=== PATIENT | male | born 1950 | race Caucasian/White ===

== ENCOUNTER 2017-05-08 20:38 | Emergency (ER) | payer BC ==
[2017-05-08 20:54] VITALS: BP 148/78
[2017-05-08] MEDS ORDERED: Oxymetazoline 0.05% Nasal Spray 15 ML Bottle NASBOTH ONE (20:57)
--- NOTE | 2017-05-08 21:19 | EDM.PDOC ---
ED HPI GENERAL MEDICAL PROBLEM - General Chief Complaint: ENT Problem Stated Complaint: EXCESSIVE NOSEBLEED Time Seen by Provider: 05/08/17 21:10 Source of Information: Reports: Patient History Limitations: Reports: No Limitations - History of Present Illness INITIAL COMMENTS - FREE TEXT/NARRATIVE: Patient is a 66-year-old male who presents ED complaining of epistaxis that started approximately 2 hours ago. States while at work the nosebleed started on its own accord with no recent trauma. He is on Coumadin chronically. Patient denies recent upper respiratory infection, n/v, sob, or any additional complaints. Treatments [employer]: Reports: Cold Therapy, Other (see below) Other Treatments [employer]: pressure - Related Data Allergies Allergy/AdvReac Type Severity Reaction Status Date / Time morphine Allergy Cannot Verified 05/08/17 20:54 Remember nabumetone Allergy Nausea Verified 05/08/17 20:54 Home Meds: Home Meds Aspirin [Low Dose Aspirin EC] 81 mg PO DAILY 02/27/14 [History] Digoxin [Lanoxin] 0.25 mg PO DAILY 02/27/14 [History] Furosemide [Lasix] 20 mg PO DAILY 02/27/14 [History] Losartan Potassium [Cozaar] 100 mg PO DAILY 02/27/14 [History] Potassium Chloride [K-Tab ER] 20 meq PO DAILY 02/27/14 [History] Sertraline [Zoloft] 50 mg PO QPM 02/27/14 [History] atorvaSTATin [Lipitor] 40 mg PO BEDTIME 04/01/14 [History] Carvedilol 25 mg PO BID 07/10/16 [History] Acetaminophen [Non-Aspirin] 325 mg PO Q4H PRN 05/08/17 [History] Hydrochlorothiazide [Hydrochlorothiazide] 1 tab PO DAILY 05/08/17 [History] Past Medical History HEENT History: Reports: Impaired Vision Cardiovascular History: Reports: Aneurysm, Bypass, High Cholesterol, Hypertension Other Cardiovascular History: open quad bypass 1 yrs ago, Attempted Cardioversion after by-pass. Other Respiratory History: H/O Hypoxia Other Gastrointestinal History: Evelated LFT's Other Genitourinary History: Elevated BUN [mild] Musculoskeletal History: Reports: Arthritis Other Musculoskeletal History: BUSTED RIGHT SHOULDER Psychiatric History: Reports: Depression Other Endocrine/Metabolic History: Hx. elevated Blood Glucose - Past Surgical History Cardiovascular Surgical History: Reports: Aneurysm, Coronary Artery Bypass Musculoskeletal Surgical History: Reports: Shoulder Surgery Social & Family History - Family History Family Medical History: Noncontributory - Tobacco Use Smoking Status *Q: Never Smoker Second Hand Smoke Exposure: No - Caffeine Use Caffeine Use: Reports: None - Alcohol Use Days Per Week of Alcohol Use: 0 - Recreational Drug Use Recreational Drug Use: No Drug Use in Last 12 Months: No ED ROS ENT - Review of Systems Review Of Systems: ROS reveals no pertinent complaints other than HPI. ED EXAM, ENT - Physical Exam Exam: See Below Exam Limited By: No Limitations General Appearance: Alert, WD/WN, No Apparent Distress Ears: Hearing Grossly Normal Nose: Active Bleeding (both nares when clip removed. ), Dried Blood Mouth/Throat: Normal Inspection, Other (bleeding to the posterior pharynx noted. ) Neck: Normal Inspection, Supple Respiratory/Chest: No Respiratory Distress, No Accessory Muscle Use Cardiovascular: Normal Peripheral Pulses, Regular Rate, Rhythm Extremities: Normal Inspection Neurological: Alert, Oriented, CN II-XII Intact, Normal Cognition, No Motor/ Sensory Deficits Psychiatric: Normal Affect, Normal Mood Skin: Warm, Dry, Intact, Normal Color Course - Vital Signs Last Recorded V/S: Last Vital Signs Temp 98 F 05/08/17 20:51 Pulse 70 05/08/17 20:51 Resp 18 05/08/17 20:51 BP 148/78 H 05/08/17 20:51 Pulse Ox 96 05/08/17 20:51 - Orders/Labs/Meds Labs: Laboratory Tests 05/08/17 05/08/17 Range/Units 21:15 21:15 WBC 9.28 H (4.23-9.07) K/mm3 RBC 4.33 L (4.63-6.08) M/mm3 Hgb 12.6 L (13.7-17.5) gm/L Hct 37.7 L (40.1-51.0) % MCV 87.1 (79.0-92.2) fl MCH 29.1 (25.7-32.2) pg MCHC 33.4 (32.2-35.5) g/dl RDW Std Deviation 43.9 (35.1-43.9) fL Plt Count 152 L (163-337) K/mm3 MPV 10.8 (9.4-12.3) fl Neut % (Auto) 68.1 H (34.0-67.9) % Lymph % (Auto) 19.7 L (21.8-53.1) % [place] % (Auto) 9.4 (5.3-12.2) % Eos % (Auto) 2.3 (0.8-7.0) Baso % (Auto) 0.5 (0.1-1.2) % Neut # (Auto) 6.32 H (1.78-5.38) K/mm3 Lymph # (Auto) 1.83 (1.32-3.57) K/mm3 [place] # (Auto) 0.87 H (0.30-0.82) K/mm3 Eos # (Auto) 0.21 (0.04-0.54) K/mm3 Baso # (Auto) 0.05 (0.01-0.08) K/mm3 PT 28.7 H (8.0-13.0) SECONDS INR 2.48 Meds: Medications Discontinued Medications Generic Name Dose Route Start Last Admin Trade Name Hoq PRN Reason Stop Dose Admin Cocaine HCl 4 ml 05/08/17 21:14 05/08/17 21:27 Cocaine Hcl TOP 05/08/17 21:15 4 ml ONETIME ONE Administration Oxymetazoline HCl 1 ml 05/08/17 20:57 05/08/17 21:27 Afrin Original 0.05% Nasal [place] NASBOTH 05/08/17 20:58 2 spray ONETIME ONE Administration - Re-Assessments/Exams Free Text/Narrative Re-Assessment/Exam: Nose clip present. When removed bleeding persists. Had patient blow his nose to remove any clots that precipitated worsening bleeding from the right nare. [place] 2 sprays to each nare with clip placed. Ordered liquid cocaine. Will place in both nares and clip to evaluate if bleeding subsides. In the meantime PT/INR and CBC ordered. Hemoglobin 12.6. INR is 2.48. INR is therapeutic for paroxysmal A. fib. 05/08/17 22:11 Removed packing from the nares. Bleeding has subsided. Heavy coat of bacitracin applied to each nare. 05/08/17 22:24 Patient went to stand up and started having bleeding from the right nare. On examination appears to be anterior in nature. Place an anterior Rhino Rocket with no complications. Per patient bleeding has subsided. 05/08/17 22:36 reassessment, bleeding has subsided. With evaluation of the posterior pharynx there is no blood present. Will per the patient for discharge. Departure - Departure Time of Disposition: 22:12 Disposition: Home, Self-Care 01 Condition: Good Clinical Impression: Epistaxis, Acute anterior epistaxis - Discharge Information Referrals: Gregorio Mccarthy MD [Primary Care Provider] - Forms: ED Department Discharge Additional Instructions: As discussed INR is therapeutic at 2.48. Bleeding from the right and there resolved with placement of a Rhino Rocket. Please leave in place until the morning of 05/10/2017. Return to the ED to have this removed. May take Tylenol for any discomfort. If bleeding starts again please return back to the ED for further evaluation.
== END 2017-05-08 22:52 | disposition home or self-care (01) ==
LOC: JD.ED 20:38
DX: R04.0 Epistaxis (principal); E78.00 Pure hypercholesterolemia, unspecified; I10 Essential (primary) hypertension; Z88.5 Allergy status to narcotic agent; Z79.82 Long term (current) use of aspirin; Z79.899 Other long term (current) drug therapy
CPT/HCPCS: 30903; 36415; 85025; 85610; 99283; A9270; 99282-25

== ENCOUNTER 2017-05-10 09:20 | Emergency (ER) | payer BC ==
[2017-05-10 09:37] VITALS: BP 89/52
--- NOTE | 2017-05-10 09:39 | EDM.PDOC ---
ED HPI GENERAL MEDICAL PROBLEM - General Chief Complaint: ENT Problem Stated Complaint: NOSEBLEED RECHECK Time Seen by Provider: 05/10/17 09:38 - History of Present Illness INITIAL COMMENTS - FREE TEXT/NARRATIVE: 66-year-old male returns emergency room for nasal packing removal. Patient had a anterior Rhino Rocket placed in his right naris 2 days ago after having what sounds like a fairly substantial bleed. The patient is on chronic Coumadin therapy. The patient has been doing well with the packing in place. The packing was removed at check in and he developed some mild bleeding. He has not had any dizziness his blood pressure is low however they keep his blood pressure low. - Related Data Allergies Allergy/AdvReac Type Severity Reaction Status Date / Time morphine Allergy Cannot Verified 05/10/17 09:29 Remember nabumetone Allergy Nausea Verified 05/10/17 09:29 Home Meds: Home Meds Aspirin [Low Dose Aspirin EC] 81 mg PO DAILY 02/27/14 [History] Digoxin [Lanoxin] 0.25 mg PO DAILY 02/27/14 [History] Furosemide [Lasix] 20 mg PO DAILY 02/27/14 [History] Losartan Potassium [Cozaar] 100 mg PO DAILY 02/27/14 [History] Potassium Chloride [K-Tab ER] 20 meq PO DAILY 02/27/14 [History] Sertraline [Zoloft] 50 mg PO QPM 02/27/14 [History] atorvaSTATin [Lipitor] 40 mg PO BEDTIME 04/01/14 [History] Carvedilol 25 mg PO BID 07/10/16 [History] Acetaminophen [Non-Aspirin] 325 mg PO Q4H PRN 05/08/17 [History] Hydrochlorothiazide [Hydrochlorothiazide] 1 tab PO DAILY 05/08/17 [History] Past Medical History HEENT History: Reports: Impaired Vision Cardiovascular History: Reports: Aneurysm, Bypass, High Cholesterol, Hypertension Other Cardiovascular History: open quad bypass 1 yrs ago, Attempted Cardioversion after by-pass. Other Respiratory History: H/O Hypoxia Other Gastrointestinal History: Evelated LFT's Other Genitourinary History: Elevated BUN [mild] Musculoskeletal History: Reports: Arthritis Other Musculoskeletal History: BUSTED RIGHT SHOULDER Psychiatric History: Reports: Depression Other Endocrine/Metabolic History: Hx. elevated Blood Glucose - Past Surgical History Cardiovascular Surgical History: Reports: Aneurysm, Coronary Artery Bypass Musculoskeletal Surgical History: Reports: Shoulder Surgery Social & Family History - Family History Family Medical History: Noncontributory - Tobacco Use Smoking Status *Q: Never Smoker Second Hand Smoke Exposure: No - Caffeine Use Caffeine Use: Reports: None - Alcohol Use Days Per Week of Alcohol Use: 0 - Recreational Drug Use Recreational Drug Use: No Drug Use in Last 12 Months: No ED ROS ENT - Review of Systems Review Of Systems: See Below Constitutional: Reports: No Symptoms Respiratory: Reports: No Symptoms Cardiovascular: Reports: No Symptoms GI/Abdominal: Reports: No Symptoms ED EXAM, ENT - Physical Exam Exam: See Below Exam Limited By: No Limitations General Appearance: Alert, No Apparent Distress Nose: Other (Patient has a small amount of active bleeding the right nasal septum this is barely visualized. This was dabbed a few times with a cotton swab then better visualized using nasal speculum one time treatment with silver nitrate was performed the patient was watched for some time after this he has not had any more bleeding) Respiratory/Chest: No Respiratory Distress, Lungs Clear, Normal Breath Sounds Cardiovascular: Regular Rate, Rhythm, No Edema ED ENT PROCEDURES - Epistaxis Procedure Indication: Epistaxis Recent anticoagulants/antiplatlets: Yes Uncontrolled HTN: No Site of bleeding: Right Nare Chemical cautery: Silver Nitrate Topical Complications: No Complication Description: Single treatment of the well-visualized bleeding site with a single stick of silver nitrate. No complications bleeding controlled Course - Vital Signs Last Recorded V/S: Last Vital Signs Temp 36.7 C 05/10/17 09:32 Pulse 63 05/10/17 09:32 Resp 18 05/10/17 09:32 BP 89/52 L 05/10/17 09:32 Pulse Ox 96 05/10/17 09:32 - Orders/Labs/Meds Labs: Laboratory Tests 05/10/17 05/10/17 Range/Units 10:13 10:13 WBC 8.02 (4.23-9.07) K/mm3 RBC 3.93 L (4.63-6.08) M/mm3 Hgb 11.3 L (13.7-17.5) gm/L Hct 34.3 L (40.1-51.0) % MCV 87.3 (79.0-92.2) fl MCH 28.8 (25.7-32.2) pg MCHC 32.9 (32.2-35.5) g/dl RDW Std Deviation 44.4 H (35.1-43.9) fL Plt Count 141 L (163-337) K/mm3 MPV 10.7 (9.4-12.3) fl Neutrophils % (Manual) 70 H (40-60) % Band Neutrophils % 1 (0-10) % Lymphocytes % (Manual) 26 (20-40) % Atypical Lymphs % 0 % Monocytes % (Manual) 1 L (2-10) % Eosinophils % (Manual) 2 (0.8-7.0) % Basophils % (Manual) 0 L (0.2-1.2) Platelet Estimate Adequate RBC Morph Comment Normal PT 30.9 H (8.0-13.0) SECONDS INR 2.66 - Re-Assessments/Exams Free Text/Narrative Re-Assessment/Exam: 05/10/17 11:16 Patient was observed following chemical cautery of his active bleeder from the right naris. CBC was checked he has a mild drop in his H&H compared to 2 days ago INR is therapeutic. Departure - Departure Time of Disposition: 11:09 Disposition: Home, Self-Care 01 Clinical Impression: Anterior epistaxis - Discharge Information Referrals: Gregorio Mccarthy MD [Primary Care Provider] - Forms: ED Department Discharge Additional Instructions: Return to emergency room if any questions problems worsening symptoms. Follow-up with your regular physician this next week for recheck. Do not put anything he knows. Use antibiotic ointment or [place] to the bottom of your nose as we discussed.
== END 2017-05-10 11:17 | disposition home or self-care (01) ==
LOC: JD.ED 09:20
DX: R04.0 Epistaxis (principal); I10 Essential (primary) hypertension; E78.00 Pure hypercholesterolemia, unspecified; Z95.1 Presence of aortocoronary bypass graft; F32.9 Major depressive disorder, single episode, unspecified; Z79.82 Long term (current) use of aspirin; Z79.899 Other long term (current) drug therapy; Z88.5 Allergy status to narcotic agent; Z88.8 Allergy status to other drugs, medicaments and biological substances
CPT/HCPCS: 30901; 36415; 85025; 85610; 99282-25; 99284-25

== ENCOUNTER 2017-05-29 20:18 | Emergency (ER) | payer BC ==
[2017-05-29 20:30] VITALS: BP 160/82
--- NOTE | 2017-05-29 21:12 | EDM.PDOC ---
ED HPI GENERAL MEDICAL PROBLEM - General Chief Complaint: ENT Problem Stated Complaint: BLOODY NOSE Time Seen by Provider: 05/29/17 21:12 Source of Information: Reports: Patient, Family () History Limitations: Reports: No Limitations - History of Present Illness INITIAL COMMENTS - FREE TEXT/NARRATIVE: The patient states that he initially developed right epistaxis on 05/08/2017. He was seen in this ED that evening, and a balloon was placed in the nostril. The patient returned to this ED on 05/10/2017. The balloon was removed, and a visible vessel was cauterized. The patient states that he has had intermittent right-sided epistaxis since, but he has been able to stop it with pinching the nose. Tonight his right nostril began bleeding again, around 18:45. The patient denies having any trauma to the nose. He has not been able to get it to stop with pinching. The patient is on Coumadin for paroxysmal atrial fibrillation. His INR last week was therapeutic. The patient does not have an ENT. The patient's PCP is Dr. Mccarthy. - Related Data Allergies Allergy/AdvReac Type Severity Reaction Status Date / Time morphine Allergy Cannot Verified 05/29/17 20:23 Remember nabumetone Allergy Nausea Verified 05/29/17 20:23 Home Meds: Home Meds Aspirin [Low Dose Aspirin EC] 81 mg PO DAILY 02/27/14 [History] Digoxin [Lanoxin] 0.25 mg PO DAILY 02/27/14 [History] Furosemide [Lasix] 20 mg PO DAILY 02/27/14 [History] Losartan Potassium [Cozaar] 100 mg PO DAILY 02/27/14 [History] Potassium Chloride [K-Tab ER] 20 meq PO DAILY 02/27/14 [History] Sertraline [Zoloft] 50 mg PO QPM 02/27/14 [History] atorvaSTATin [Lipitor] 40 mg PO BEDTIME 04/01/14 [History] Carvedilol 25 mg PO BID 07/10/16 [History] Acetaminophen [Non-Aspirin] 325 mg PO Q4H PRN 05/08/17 [History] Hydrochlorothiazide [Hydrochlorothiazide] 1 tab PO DAILY 05/08/17 [History] Warfarin [Coumadin] 5 mg PO SUMOTUWETHSA 05/29/17 [History] Warfarin [Coumadin] 7.5 mg PO FR 05/29/17 [History] Past Medical History HEENT History: Reports: Impaired Vision Cardiovascular History: Reports: Afib (paroxysmal), Aneurysm (Ascending aortic) , CAD, High Cholesterol, Hypertension - Past Surgical History Cardiovascular Surgical History: Reports: Aneurysm (Ascending aortic aneurysm repair), Coronary Artery Bypass (x 4 vessel. 2015), Valve Replacement (Bovine aortic), Other (See Below) (Coronary angiogram) GI Surgical History: Reports: Appendectomy, Hernia, Abdominal, Hernia, Inguinal (right) Musculoskeletal Surgical History: Reports: Shoulder Surgery (right, open) Social & Family History - Family History Family Medical History: Noncontributory - Tobacco Use Smoking Status *Q: Never Smoker Second Hand Smoke Exposure: No - Caffeine Use Caffeine Use: Reports: None - Alcohol Use Alcohol Use History: No Days Per Week of Alcohol Use: 0 - Recreational Drug Use Recreational Drug Use: No - Living Situation & Occupation Living situation: Reports: , with Spouse Occupation: Employed (Maintenance) ED ROS ENT - Review of Systems Review Of Systems: ROS reveals no pertinent complaints other than HPI. ED EXAM, ENT - Physical Exam Exam: See Below Exam Limited By: No Limitations General Appearance: Alert Eye Exam: Bilateral Eye: Normal Inspection Ears: Normal External Exam, Normal Canal, Hearing Grossly Normal, Normal TMs Nose: Active Bleeding (Lower right posterior septum) Mouth/Throat: Normal Inspection, Normal Lips, Other (Blood clot noted in the posterior oropharynx. Upper dentures.) Head: Atraumatic, Normocephalic ED ENT PROCEDURES - Epistaxis Procedure Indication: Epistaxis, Uncontrolled Recent anticoagulants/antiplatlets: Yes Uncontrolled HTN: No Recent septal/nasal surgery: No Site of bleeding: Right Nare, Anterior Clearing of clots: Patient Blew Nose Topical Meds: Topical Cocaine Ice pack to area: No Anterior Packing: Inflatable Nasal Tampon Complications: No Course - Vital Signs Last Recorded V/S: Last Vital Signs Temp 37.1 C 05/29/17 20:27 Pulse 67 05/29/17 20:27 Resp 18 05/29/17 20:27 BP 160/82 H 05/29/17 20:27 Pulse Ox 98 05/29/17 20:27 - Orders/Labs/Meds Meds: Medications Discontinued Medications Generic Name Dose Route Start Last Admin Trade Name Freq PRN Reason Stop Dose Admin Cocaine HCl 2 ml 05/29/17 21:27 05/29/17 21:51 Cocaine Hcl TOP 05/29/17 21:28 2 ml ONETIME STA Administration - Re-Assessments/Exams Free Text/Narrative Re-Assessment/Exam: 05/29/17 22:17 When the right nostril was initially inspected, no active bleeding was seen, however, there was a blood clot in the nostril, as well as in the posterior oropharynx. I had the patient gargle with water, and he was able to expel a large blood clot. I then had him blow his nose gently, and he was able to expel a blood clot, however, his nose then started bleeding. Inspection demonstrated bleeding of the area previously suspected, at the lower posterior septum. Topical cocaine was applied several times, but I was unable to get the bleeding to stop, therefore a 5.5 cm Rapid Rhino balloon was inserted, with successful cessation of bleeding. I had the patient gargle again, and there is still a small amount of blood clot adherent to the posterior oropharynx, that I explained to him might come out in the next day or 2. I will have him follow-up with Dr. Hernandez, ENT. Departure - Departure Time of Disposition: 22:09 Disposition: Home, Self-Care 01 Condition: Fair Clinical Impression: Epistaxis, recurrent - Discharge Information Referrals: Jose Hernandez MD [Physician] - Forms: ED Department Discharge Additional Instructions: You were seen in the emergency room for a recurrent right-sided nosebleed. Unfortunately, we were not able to get the nosebleed to stop with topical cocaine. A Rapid Rhino balloon has been placed in your right nostril. Follow-up with the ENT Dr. Hernandez at the next available appointment. If any other problems, please do not hesitate to return to the ER.
== END 2017-05-29 22:20 | disposition home or self-care (01) ==
LOC: JD.ED 20:18
DX: R04.0 Epistaxis (principal); E78.00 Pure hypercholesterolemia, unspecified; I10 Essential (primary) hypertension; Z88.5 Allergy status to narcotic agent; Z79.82 Long term (current) use of aspirin; Z79.899 Other long term (current) drug therapy; Z79.01 Long term (current) use of anticoagulants
CPT/HCPCS: 30903; 99283-25

== ENCOUNTER 2017-06-02 04:24 | Emergency (ER) | payer BC ==
--- NOTE | 2017-06-02 05:19 | EDM.PDOC ---
ED HPI GENERAL MEDICAL PROBLEM - General Chief Complaint: ENT Problem Stated Complaint: bloody nose Time Seen by Provider: 06/02/17 04:51 Source of Information: Reports: Patient, Family (), Old Records History Limitations: Reports: No Limitations - History of Present Illness INITIAL COMMENTS - FREE TEXT/NARRATIVE: The patient initially developed right epistaxis on 05/08/2017. He was seen in this ED that evening, and a balloon was placed in the nostril. The patient returned to this ED on 05/10/2017, at which time the balloon was removed, and a visible vessel was cauterized. The patient had intermittent right-sided epistaxis since, but he was able to control it by pinching his nose. The patient was seen by me in this ED on 05/29/2017 with a right sided epistaxis that he was unable to control by pinching. I attempted to control the epistaxis with topical cocaine, unsuccessfully. A 5.5 cm Rapid Rhino was placed with successful control of the epistaxis, and the patient was discharged home with a referral to the ENT, Dr. Hernandez. The patient attempted to follow-up with Dr. Hernandez, but unbeknownst to us, Dr. Hernandez has moved his office from [place] to [place]. The patient therefore followed up with his PCP, Dr. Mccarthy, on , 05/31/2017. The balloon was removed, and the same visible vessel was cauterized. She was prescribed amoxicillin 500 mg TID to treat the visible ulcer. The patient was then referred to a different ENT in [place], whose name the patient and his cannot recall at this time. The patient is on Coumadin for paroxysmal atrial fibrillation. His INR was checked on , 05/31/2017 and found to be therapeutic at 2.06. His H/H was also checked and found to be "low" according to the patient's , however, no treatment was planned until the epistaxis issue under control. The patient now returns with recurrent painless right-sided epistaxis, discovered when the patient woke at 02:40 this morning. As before, no history of trauma. - Related Data Allergies Allergy/AdvReac Type Severity Reaction Status Date / Time morphine Allergy Cannot Verified 06/02/17 05:02 Remember nabumetone Allergy Nausea Verified 06/02/17 05:02 Home Meds: Home Meds Aspirin [Low Dose Aspirin EC] 81 mg PO DAILY 02/27/14 [History] Digoxin [Lanoxin] 0.25 mg PO DAILY 02/27/14 [History] Furosemide [Lasix] 20 mg PO DAILY 02/27/14 [History] Losartan Potassium [Cozaar] 100 mg PO DAILY 02/27/14 [History] Potassium Chloride [K-Tab ER] 20 meq PO DAILY 02/27/14 [History] Sertraline [Zoloft] 50 mg PO QPM 02/27/14 [History] atorvaSTATin [Lipitor] 40 mg PO BEDTIME 04/01/14 [History] Carvedilol 25 mg PO BID 07/10/16 [History] Acetaminophen [Non-Aspirin] 325 mg PO Q4H PRN 05/08/17 [History] Hydrochlorothiazide [Hydrochlorothiazide] 1 tab PO DAILY 05/08/17 [History] Warfarin [Coumadin] 5 mg PO SUMOTUWETHSA 05/29/17 [History] Warfarin [Coumadin] 7.5 mg PO FR 05/29/17 [History] Past Medical History HEENT History: Reports: Impaired Vision Cardiovascular History: Reports: Afib (paroxysmal), Aneurysm (Ascending aortic, status post repair), CAD, High Cholesterol, Hypertension - Past Surgical History Cardiovascular Surgical History: Reports: Aneurysm (Ascending aortic aneurysm repair), Coronary Artery Bypass (x 4 vessel, 2014), Valve Replacement (Bovine aortic), Other (See Below) (Coronary angiogram) GI Surgical History: Reports: Appendectomy, Hernia, Abdominal, Hernia, Inguinal (right) Musculoskeletal Surgical History: Reports: Shoulder Surgery (right, open) Social & Family History - Family History Family Medical History: Noncontributory - Tobacco Use Smoking Status *Q: Never Smoker Second Hand Smoke Exposure: No - Caffeine Use Caffeine Use: Reports: None - Alcohol Use Alcohol Use History: No Days Per Week of Alcohol Use: 0 - Recreational Drug Use Recreational Drug Use: No - Living Situation & Occupation Living situation: Reports: , with Spouse Occupation: Employed (Maintenance) ED ROS ENT - Review of Systems Review Of Systems: ROS reveals no pertinent complaints other than HPI. ED EXAM, ENT - Physical Exam Exam: See Below Exam Limited By: No Limitations General Appearance: Alert, WD/WN, No Apparent Distress Eye Exam: Bilateral Eye: Normal Inspection Ears: Normal External Exam, Hearing Grossly Normal Nose: Active Bleeding (Right nostril, unable to stop with direct pressure and topical cocaine) Mouth/Throat: Normal Gums, Normal Lips, Other (Blood + blood clot in posterior oropharynx) Head: Atraumatic, Normocephalic Neck: Normal Inspection, Full Range of Motion ED ENT PROCEDURES - Epistaxis Procedure Indication: Epistaxis, Uncontrolled Recent anticoagulants/antiplatlets: Yes Uncontrolled HTN: No Recent septal/nasal surgery: No Site of bleeding: Right Nare, Anterior Clearing of clots: Patient Blew Nose Topical Meds: Topical Cocaine Ice pack to area: No Posterior packing: Long Inflatable Nasal Tampon Complications: No Course - Vital Signs Last Recorded V/S: Last Vital Signs Temp 36.9 C 06/02/17 04:31 Pulse 88 06/02/17 04:31 Resp 18 06/02/17 04:31 BP 158/85 H 06/02/17 04:31 Pulse Ox 100 06/02/17 04:31 - Orders/Labs/Meds Meds: Medications Discontinued Medications Generic Name Dose Route Start Last Admin Trade Name Austyn PRN Reason Stop Dose Admin Cocaine HCl Confirm 06/02/17 04:48 06/02/17 05:15 Cocaine Hcl Administered 06/02/17 04:49 Not Given Dose 4 ml .ROUTE .STK-MED ONE Cocaine HCl 0 ml 06/02/17 05:14 06/02/17 05:15 Cocaine Hcl TOP 06/02/17 05:15 4 ml ONETIME ONE Administration - Re-Assessments/Exams Free Text/Narrative Re-Assessment/Exam: 06/02/17 05:12 I attempted to stop the epistaxis using topical cocaine, without success. I therefore placed a 5.5 cm Rapid Rhino into the right nostril. This appears to have successfully stopped the bleeding, but I will recheck it in 10 minutes to be sure. As per the history of present illness, the patient is scheduled to see an ENT in [place] this coming 06/04/2017. The Rapid Rhino should stay in place until then, at which time the ENT can remove it. The patient is already on amoxicillin, prescribed by Dr. Mccarthy. 06/02/17 05:24 No sign of bleeding on recheck of the balloon and the posterior oropharynx. Departure - Departure Time of Disposition: 05:24 Disposition: Home, Self-Care 01 Condition: Good Clinical Impression: Right-sided epistaxis - Discharge Information Referrals: Gregorio Mccarthy MD [Primary Care Provider] - Forms: ED Department Discharge Additional Instructions: You were seen in the emergency room for recurrent right nosebleed. As before, we were unable to control the bleeding with topical cocaine, therefore a rapid Rhino balloon was placed. Continue to take the amoxicillin that was prescribed by Dr. Mccarthy. Take [id number] Tylenol or ibuprofen as needed for discomfort. Follow-up with the ENT that you are referred to, in [place], as previously scheduled this coming 06/04/2017. If any other problems, please do not hesitate to return to the ER.
[2017-06-02 05:36] VITALS: BP 158/85
== END 2017-06-02 05:35 | disposition home or self-care (01) ==
LOC: JD.ED 04:24
DX: R04.0 Epistaxis (principal); Z88.5 Allergy status to narcotic agent; Z88.8 Allergy status to other drugs, medicaments and biological substances; Z79.82 Long term (current) use of aspirin; I10 Essential (primary) hypertension; I48.91 Unspecified atrial fibrillation; E78.00 Pure hypercholesterolemia, unspecified
CPT/HCPCS: 30903; 99283-25